=== PATIENT | female | born 1975 | race American Indian/Alaskan Native ===

== ENCOUNTER 2016-11-07 11:02 | Emergency (ER) | payer MEDICAID ==
--- NOTE | 2016-11-07 12:17 | Emergency Department Report ---
Chief Complaint: Upper Respiratory Infection Stated Complaint: FLU Time Seen by Provider: 11/07/16 12:14 - HPI History of Present Illness: 41 y/o female complain of bodyache ,fever and chills x 10 days ,pt state he was told at doctor she was dehydration and to go to Er for further evaluate .pt complain of nausea at present .denies any vomiting/diarrhea. - ROS Review of Systems: per HPI - Exam Vital Signs: Vital Signs 11/07/16 12:06 Temperature 98.4 F Pulse Rate 118 H Respiratory 22 Rate Blood Pressure 139/88 O2 Sat by Pulse 100 Oximetry Physical Exam: GENERAL: The patient is well-developed and well-nourished. Patient is in NAD. HENT: Normocephalic. Atraumatic. Patient has moist mucous membranes. Throat: No erythema, swelling or exudates. EYES: Extraocular motions are intact, PERRL NECK: Supple. No meningitic signs are noted. There is no adenopathy noted. CHEST/LUNGS: Clear to auscultation bilaterally. No wheezing, rales or rhonchi noted. There is no respiratory distress noted. HEART/CARDIOVASCULAR: Regular rate and rhythm. Normal S1 S2. No murmurs, rubs , clicks, or gallops. ABDOMEN: Abdomen is soft, nontender.. Bowel sounds normoactive. There is no abdominal distention. Negative rebound tenderness. : Deferred. SKIN: There is no rash. There is no edema. There is no diaphoresis. NEURO: The patient is A&Ox3. The patient has no focal neurologic deficits. MUSCULOSKELETAL: There is no tenderness or deformity. There is no limitation range of motion. PSYCH: Pt has appropriate mood and affect. MSE screening note: Focused history and physical exam performed. Due to findings the following was ordered: ED Disposition for MSE Condition: Stable
[2016-11-07 13:03] LABS: Basophils % (Auto) 0.7 % (0.0-1.8); Eosinophils % (Auto) 0.8 % (0.0-4.3); Hematocrit 40.5 % (30.3-42.9); Hemoglobin 13.8 gm/dl (10.1-14.3); Mean Corpuscular HGB Conc 34 % (30-34); Mean Corpuscular Hemoglobin 30 pg (28-32); Mean Corpuscular Volume 88 fl (79-97); Platelet Count 229 K/mm3 (140-440); Red Blood Count 4.62 M/mm3 (3.65-5.03); Red Cell Distribution Width 12.3 % (13.2-15.2)
[2016-11-07 13:07] LABS: Anion Gap 17 mmol/L; Blood Urea Nitrogen 6 mg/dL (7-17); Calcium 9.2 mg/dL (8.4-10.2); Carbon Dioxide 25 mmol/L (22-30); Chloride 97.5 mmol/L (98-107); Glucose 121 mg/dL (65-100); Potassium 3.9 mmol/L (3.6-5.0); Sodium 136 mmol/L (137-145)
[2016-11-07 16:33] VITALS: BP 136/79
--- NOTE | 2016-11-08 14:30 | ED Elopement Review ---
ED Pt Elopement review - Results review Lab results: Laboratory Tests 11/07/16 11/07/16 11/07/16 12:30 12:30 12:30 WBC 3.0 L RBC 4.62 Hgb 13.8 Hct 40.5 MCV 88 MCH 30 MCHC 34 RDW 12.3 L Plt Count 229 Lymph % (Auto) 36.8 H Rolette % (Auto) 12.3 H Eos % (Auto) 0.8 Baso % (Auto) 0.7 Lymph # 1.1 L Rolette # 0.4 Eos # 0.0 Baso # 0.0 Seg Neutrophils % 49.4 Seg Neutrophils # 1.5 L Sodium 136 L Potassium 3.9 Chloride 97.5 L Carbon Dioxide 25 Anion Gap 17 BUN 6 L Creatinine 0.6 L Estimated GFR > 60 BUN/Creatinine Ratio 10.00 Glucose 121 H Calcium 9.2 HCG, Quant < 2 - Call Back decision Pt Call Back Decision: No action required
== END 2016-11-07 22:00 | disposition left against medical advice (07) ==
LOC: ED 11:02
DX: M79.1 Myalgia (principal); R50.9 Fever, unspecified; R11.0 Nausea; Z53.21 Procedure and treatment not carried out due to patient leaving prior to being seen by health care provider
CPT/HCPCS: 36415; 80048; 84702; 85025

== ENCOUNTER 2017-04-23 16:28 | Outpatient (CLI) | payer MEDICAID ==
--- NOTE | 2017-04-24 13:45 | Magnetic Resonance Report ---
MR CERVICAL SPINE WITH AND WITHOUT CONTRAST HISTORY: Neck pain, intervertebral disc degeneration. TECHNIQUE: Multisequence, multiplanar MRI before and after 12 cc of Multihance intravenously. COMPARISON: No relevant comparison. FINDINGS: Anterior fusion hardware from C3-5 generates moderate artifact. Grossly, the hardware appears well applied. There is normal height and alignment of the cervical vertebral bodies. No fracture, subluxation or bone lesion is appreciated. The cervical cord is normal size and signal intensity throughout. The posterior elements are in appropriate relationship. Minimal facet arthropathy is noted at all levels. C2-3: No significant abnormality. C3-4: No significant abnormality. C4-5: No significant abnormality. C5-6: A moderate posterior bulging disc and moderate right uncovertebral spurring are identified. There is mild central canal narrowing at this level measuring 8 mm in AP dimension. Right neural foraminal narrowing is estimated at 50-75%. C6-7: A moderate diffuse posterior bulging disc is identified. There is borderline central canal narrowing measuring 9-10 mm in AP dimension. No significant bilateral neural foraminal narrowing. C7-T1: No significant abnormality. No abnormal enhancement is detected following IV gadolinium. Impression: Stable appearance of the anterior cervical fusion from C3-5. Mild to moderate degenerative disc disease is identified at C5-6 and C6-7 as outlined above. C5-6 appears to be the most affected level. Please see above. No acute injury is appreciated.
== END 2017-04-23 16:29 | disposition home or self-care (01) ==
LOC: MRI 16:28
PROVIDERS: ATTEND Registered Nurse
DX: M50.122 Cervical disc disorder at C5-C6 level with radiculopathy (principal); M50.123 Cervical disc disorder at C6-C7 level with radiculopathy; M50.20 Other cervical disc displacement, unspecified cervical region; M51.36 Other intervertebral disc degeneration, lumbar region; M51.26 Other intervertebral disc displacement, lumbar region; M43.22 Fusion of spine, cervical region; M51.34 Other intervertebral disc degeneration, thoracic region; M12.88 Other specific arthropathies, not elsewhere classified, other specified site; I10 Essential (primary) hypertension; E78.00 Pure hypercholesterolemia, unspecified; F32.1 Major depressive disorder, single episode, moderate; Z72.0 Tobacco use
CPT/HCPCS: 72156; A9577

== ENCOUNTER 2017-09-07 23:30 | Emergency (ER) | payer MEDICAID ==
[2017-09-07 23:53] VITALS: BP 109/57
[2017-09-08 00:23] LABS: Basophils % (Auto) 0.8 % (0.0-1.8); Eosinophils % (Auto) 0.5 % (0.0-4.3); Hematocrit 37.3 % (30.3-42.9); Hemoglobin 12.6 gm/dl (10.1-14.3); Mean Corpuscular HGB Conc 34 % (30-34); Mean Corpuscular Hemoglobin 30 pg (28-32); Mean Corpuscular Volume 89 fl (79-97); Platelet Count 228 K/mm3 (140-440); Red Cell Distribution Width 12.8 % (13.2-15.2); White Blood Count 5.6 K/mm3 (4.5-11.0)
[2017-09-08 00:41] LABS: Anion Gap 18 mmol/L; BUN/Creatinine Ratio 15; Blood Urea Nitrogen 9 mg/dL (7-17); Carbon Dioxide 24 mmol/L (22-30); Chloride 98.1 mmol/L (98-107); Glucose 108 mg/dL (65-100); INR 0.93 (0.87-1.13); Potassium 3.7 mmol/L (3.6-5.0); Sodium 136 mmol/L (137-145)
--- NOTE | 2017-09-08 00:41 | XRay Report ---
FINAL REPORT EXAM: XR CHEST ROUTINE 2V HISTORY: Shortness of breath COMPARISON: August 2015. FINDINGS:: Frontal and lateral views of the chest obtained. Cardiac silhouette is within normal limits. No focal consolidation or effusion. No pneumothorax. Visualized bony thorax is grossly intact. IMPRESSION:: No acute findings.
[2017-09-08 03:48] LABS: Bilirubin,Urine NEG (Negative); Blood,Urine NEG (Negative); Ketones,Urine NEG (Negative); Leukocyte Esterase,Urine NEG (Negative); Mucus,Urine FEW /HPF; Nitrite,Urine NEG (Negative); Protein,Urine <15 mg/dL mg/dL (Negative); RBC,Urine < 1.0 /HPF (0.0-6.0); Urobilinogen,Urine < 2.0 mg/dL (<2.0); WBC,Urine < 1.0 /HPF (0.0-6.0)
== END 2017-09-08 08:25 | disposition left against medical advice (07) ==
LOC: ED 23:30
DX: R07.89 Other chest pain (principal)
CPT/HCPCS: 36415; 71020; 80048; 81001; 82140; 84484; 84703; 85025; 85610; 93005; 93010